=== PATIENT | male | born 1945 | race Caucasian/White ===

== ENCOUNTER → 2025-01-04 | Outpatient (BNVA) | payer MEDICARE, SELFPAY | END | disposition home or self-care (01) | PROVIDERS: Visit Provider Urology | DX: N40.0 Benign prostatic hyperplasia without lower urinary tract symptoms (principal); C61 Malignant neoplasm of prostate; N32.81 Overactive bladder; I10 Essential (primary) hypertension; I48.91 Unspecified atrial fibrillation; I25.10 Atherosclerotic heart disease of native coronary artery without angina pectoris; Z95.5 Presence of coronary angioplasty implant and graft; Z86.73 Personal history of transient ischemic attack (TIA), and cerebral infarction without residual deficits; F17.210 Nicotine dependence, cigarettes, uncomplicated | CPT/HCPCS: 81003; 99212; G0463 ==

== ENCOUNTER → 2025-05-07 | Outpatient (BNVA) | payer MEDICARE, SELFPAY | END | disposition home or self-care (01) | PROVIDERS: Visit Provider Physician Assistant | DX: C61 Malignant neoplasm of prostate (principal); Z86.73 Personal history of transient ischemic attack (TIA), and cerebral infarction without residual deficits; I10 Essential (primary) hypertension; I48.91 Unspecified atrial fibrillation; F17.210 Nicotine dependence, cigarettes, uncomplicated | CPT/HCPCS: Q3014 ==

== ENCOUNTER → 2025-07-09 | Outpatient (BNVA) | payer MEDICARE, SELFPAY | END | disposition home or self-care (01) | PROVIDERS: PCP Internal Medicine; Referring Provider Internal Medicine; Visit Provider Urology | DX: N40.1 Benign prostatic hyperplasia with lower urinary tract symptoms (principal); C61 Malignant neoplasm of prostate; N32.81 Overactive bladder; N39.0 Urinary tract infection, site not specified; Z53.8 Procedure and treatment not carried out for other reasons; I10 Essential (primary) hypertension; I48.91 Unspecified atrial fibrillation; I25.10 Atherosclerotic heart disease of native coronary artery without angina pectoris; Z86.73 Personal history of transient ischemic attack (TIA), and cerebral infarction without residual deficits; F17.210 Nicotine dependence, cigarettes, uncomplicated | CPT/HCPCS: 81003; 96372; 99213; A4217; A4649; C1894; J1580; A9270; G0463 ==

== ENCOUNTER → 2025-07-09 | Outpatient (CLI) | payer MEDICARE, SELFPAY | END | disposition home or self-care (01) | PROVIDERS: Referring Provider Urology; Visit Provider Urology | DX: N39.0 Urinary tract infection, site not specified (principal) | CPT/HCPCS: 87077; 87086; 87186 ==

== ENCOUNTER → 2025-08-01 | Outpatient (BNVA) | payer MEDICARE, SELFPAY | END | disposition home or self-care (01) | PROVIDERS: Visit Provider Urology | DX: N40.1 Benign prostatic hyperplasia with lower urinary tract symptoms (principal); R39.12 Poor urinary stream | CPT/HCPCS: 51741; 51798 ==